=== PATIENT | female | born 1965 | race Hispanic/Latino ===

== ENCOUNTER 2017-05-28 19:12 | Emergency (ER) | payer OTHER, SELFPAY ==
[~2017-05-28 19:12] MED LIST: AMLO5TAB2 PO; AZIT250T PO; ENAL20TA PO; GLIP10TA9 PO; IBUP-2070 PO; METF850T2 PO; OMEP20CA10 PO
== END 2017-05-28 20:18 | disposition home or self-care (01) ==
LOC: EDH 19:12
DX: R51 Headache (principal); E11.9 Type 2 diabetes mellitus without complications; I10 Essential (primary) hypertension
CPT/HCPCS: 99281

== ENCOUNTER 2019-04-05 21:38 | Emergency (ER) | payer OTHER ==
[~2019-04-05 21:38] MED LIST changes: -AMLO5TAB2 PO; +AMLO5TAB9 PO; +METF-445 PO; -METF850T2 PO; +OMEP-50 PO; -OMEP20CA10 PO
[2019-04-05 22:23] LABS: RAPID GROUP A STREP NEGATIVE (NEGATIVE)
[2019-04-05 23:35] LABS: BASOPHILS % (AUTO) 0.6 % (0.0-5.0); EOSINOPHILS % (AUTO) 1.6 % (0.0-8.0); HEMATOCRIT 41.3 % (36-48); LYMPHOCYTES % (AUTO) 45.1 % (21.0-51.0); MEAN CORPUSCULAR HEMOGLOBIN 26.9 pg (27.0-33.0); MEAN CORPUSCULAR HGB CONC 32.7 g/dL (32.0-36.0); MEAN CORPUSCULAR VOLUME 82.3 fL (79-99); MONOCYTES % (AUTO) 7.3 % (3.0-13.0); NEUTROPHILS % (AUTO) 45.4 % (40.0-77.0); NUCLEATED RED BLOOD CELLS 0.1 % (0.0-0.19); PLATELET COUNT (AUTO) 104 K/uL (130-400); RED BLOOD CELL COUNT(AUTO) 5.01 MIL/uL (4.00-5.50); RED CELL DISTRIBUTION WIDTH 14.1 % (11.0-15.5); WHITE BLOOD COUNT (AUTO) 12.4 K/uL (4.8-10.8)
== END 2019-04-06 00:13 | disposition home or self-care (01) ==
LOC: EDH 21:38
DX: J02.9 Acute pharyngitis, unspecified (principal); H65.03 Acute serous otitis media, bilateral; E11.9 Type 2 diabetes mellitus without complications; I10 Essential (primary) hypertension; Z90.49 Acquired absence of other specified parts of digestive tract
CPT/HCPCS: 36415; 85025; 87804; 87880

== ENCOUNTER 2019-07-09 08:17 | Emergency (ER) | payer OTHER ==
[~2019-07-09 08:17] MED LIST changes: -OMEP-50 PO; +OMEP20CA12 PO
[2019-07-09] MEDS ORDERED: LIDOCAINE HCL-MPF 1% 2ML VIAL ONE (08:54)
[2019-07-09] MEDS ORDERED: KETOROLAC TROMETHAMINE 60 MG/2 ML VIAL ONE (08:55)
[2019-07-09 09:26] LABS: RAPID GROUP A STREP NEGATIVE (NEGATIVE)
== END 2019-07-09 10:37 | disposition home or self-care (01) ==
LOC: EDH 08:17
DX: J02.9 Acute pharyngitis, unspecified (principal); E11.9 Type 2 diabetes mellitus without complications; I10 Essential (primary) hypertension; Z90.49 Acquired absence of other specified parts of digestive tract
CPT/HCPCS: 87804 ×2; 87880; 96372 ×2; 99284; J1885; J3490

== ENCOUNTER 2020-03-12 19:53 | Emergency (ER) | payer OTHER ==
[~2020-03-12 19:53] MED LIST changes: +AMLO-257 PO; -AMLO5TAB9 PO; -ENAL20TA PO; +ENAL20TA18 PO
[2020-03-12 20:26] LABS: APPEARANCE,URINE CLOUDY (CLEAR); BILIRUBIN,URINE NEGATIVE (NEGATIVE); COLOR,URINE YELLOW (YELLOW); GLUCOSE, URINE (UA) >=1000 mg/dL (NEGATIVE); KETONES,URINE NEGATIVE (NEGATIVE); LEUKOCYTE ESTERASE ,URINE NEGATIVE (NEGATIVE); NITRATE,URINE NEGATIVE (NEGATIVE); OCCULT BLOOD,URINE MODERATE (NEGATIVE); PROTEIN,URINE 100 mg/dL (NEGATIVE); UROBILINOGEN,URINE 0.2 mg/dL (0.2-1.0)
[2020-03-12] MEDS ORDERED: ONDANSETRON HCL 4 MG/2 ML VIAL ONE (20:32)
[2020-03-12] MEDS ORDERED: MORPHINE SULFATE 4 MG/1ML SYG ONE (20:32)
[2020-03-12 20:43] LABS: BASOPHILS % (AUTO) 0.8 % (0.0-5.0); EOSINOPHILS % (AUTO) 0.8 % (0.0-8.0); HEMATOCRIT 44.4 % (36-48); LYMPHOCYTES % (AUTO) 27.2 % (21.0-51.0); MEAN CORPUSCULAR HEMOGLOBIN 27.1 pg (27.0-33.0); MEAN CORPUSCULAR HGB CONC 33.1 g/dL (32.0-36.0); MEAN CORPUSCULAR VOLUME 81.8 fL (79-99); NEUTROPHILS % (AUTO) 63.8 % (40.0-77.0); PLATELET COUNT (AUTO) 103 K/uL (130-400); RED BLOOD CELL COUNT(AUTO) 5.43 MIL/uL (4.00-5.50); RED CELL DISTRIBUTION WIDTH 14.6 % (11.0-15.5); WHITE BLOOD COUNT (AUTO) 15.5 K/uL (4.8-10.8)
[2020-03-12 20:46] LABS: BACTERIA,URINE Rare /HPF (None Seen); CALCIUM OXALATE CRYSTALS,UR Few /LPF (None Seen); RBC,URINE 26-50 /HPF (0-1); SQUAMOUS EPITHELIAL CELL,UR Rare /HPF (0-2)
[2020-03-12 20:53] LABS: CREATININE 0.8 mg/dL (0.5-1.5); POTASSIUM 3.8 mmol/L (3.5-5.1)
[2020-03-12 20:55] LABS: INR 0.91 (0.85-1.15); PARTIAL THROMBOPLASTIN TIME 24.7 SEC (26.3-35.5); PROTHROMBIN TIME 9.9 SEC (9.6-11.6)
[2020-03-12 20:58] LABS: ALBUMIN 3.7 g/dL (3.5-5.0); BILIRUBIN,TOTAL 0.3 mg/dL (0.2-1.0); TOTAL PROTEIN, SERUM 8.4 g/dL (6.0-8.3)
== END 2020-03-12 22:39 | disposition home or self-care (01) ==
LOC: EDH 19:53
DX: N39.0 Urinary tract infection, site not specified (principal); E11.65 Type 2 diabetes mellitus with hyperglycemia; I10 Essential (primary) hypertension; Z90.49 Acquired absence of other specified parts of digestive tract; Z98.890 Other specified postprocedural states
CPT/HCPCS: 36415; 74176; 80053; 81001; 83690; 84484; 85025; 85610; 85730; 93005; 96361; 96374; 96375; 99285; J2270; J2405

== ENCOUNTER 2021-01-19 22:20 | Emergency (ER) | payer OTHER ==
[~2021-01-19] VITALS: Ht 154.9 cm; Wt 88.5 kg
[2021-01-19] MEDS ORDERED: ACET-2247 PO (22:45)
[2021-01-19] MEDS ORDERED: CEPH500B PO (22:45)
[2021-01-19] MEDS ORDERED: CEPHALEXIN 500 MG CAPSULE PO ONE (23:00)
[2021-01-19] MEDS ORDERED: KETOROLAC 60 MG VIAL (30MG/ML) IM ONE (23:00)
[2021-01-19] MEDS ORDERED: HYDROCODONE/ACETAMINOPHEN 10/325 MG TAB PO ONE (23:00)
[2021-01-19 23:27] VITALS: BP 119/50
== END 2021-01-19 23:29 | disposition home or self-care (01) ==
LOC: EDH 22:20
DX: L03.113 Cellulitis of right upper limb (principal); M77.11 Lateral epicondylitis, right elbow; I10 Essential (primary) hypertension; E11.65 Type 2 diabetes mellitus with hyperglycemia; Z79.1 Long term (current) use of non-steroidal anti-inflammatories (NSAID); Z79.84 Long term (current) use of oral hypoglycemic drugs; Z79.899 Other long term (current) drug therapy
CPT/HCPCS: 82948; 96372; 99283; J1885

== ENCOUNTER 2021-11-16 18:05 | Inpatient (IN) | payer OTHER ==
[~2021-11-16] VITALS: Ht 154.9 cm; Wt 92.3 kg
[~2021-11-16 18:05] MED LIST changes: +ACET-2247 PO; +CEPH500B PO; +PHARMACY COMMUNICATION MISC SCH
[2021-11-16 18:40] LABS: BASOPHILS % (AUTO) 0.5 % (0.0-5.0); EOSINOPHILS % (AUTO) 1.2 % (0.0-8.0); HEMATOCRIT 43.2 % (36-48); LYMPHOCYTES % (AUTO) 28.1 % (21.0-51.0); MEAN CORPUSCULAR HEMOGLOBIN 27.4 pg (27.0-33.0); MEAN CORPUSCULAR HGB CONC 32.2 g/dL (32.0-36.0); MEAN CORPUSCULAR VOLUME 85.2 fL (79-99); MONOCYTES % (AUTO) 8.8 % (3.0-13.0); NEUTROPHILS % (AUTO) 61.1 % (40.0-77.0); PLATELET COUNT (AUTO) 97 K/uL (130-400); RED BLOOD CELL COUNT(AUTO) 5.07 MIL/uL (4.00-5.50); WHITE BLOOD COUNT (AUTO) 13.4 K/uL (4.8-10.8)
[2021-11-16 18:49] LABS: CREATININE 0.7 mg/dL (0.5-1.5); POTASSIUM 4.5 mmol/L (3.5-5.1)
[2021-11-16 18:53] LABS: ALBUMIN 3.6 g/dL (3.5-5.0); BILIRUBIN,TOTAL 0.4 mg/dL (0.2-1.0); TOTAL PROTEIN, SERUM 8.2 g/dL (6.0-8.3)
[2021-11-16] MEDS ORDERED: 0.9%NACL 1000ML 1,000 ML IV SCH (19:30)
[2021-11-16] MEDS ORDERED: INSULIN HUMULIN R 100 UNIT/ML 3ML IV ONE (19:30)
[2021-11-16] MEDS ORDERED: KETOROLAC 30MG VIAL (30MG/ML) IVP ONE (19:30)
[2021-11-16] MEDS ORDERED: ONDANSETRON 4MG INJ IVP ONE (19:30)
[2021-11-16 19:43] LABS: APPEARANCE,URINE CLEAR (CLEAR); BILIRUBIN,URINE NEGATIVE (NEGATIVE); COLOR,URINE YELLOW (YELLOW); GLUCOSE, URINE (UA) >=1000 mg/dL (NEGATIVE); KETONES,URINE NEGATIVE (NEGATIVE); LEUKOCYTE ESTERASE ,URINE NEGATIVE (NEGATIVE); NITRATE,URINE NEGATIVE (NEGATIVE); OCCULT BLOOD,URINE NEGATIVE (NEGATIVE); PROTEIN,URINE NEGATIVE (NEGATIVE); UROBILINOGEN,URINE 0.2 mg/dL (0.2-1.0)
[2021-11-16 19:52] LABS: BACTERIA,URINE Rare /HPF (None Seen); RBC,URINE 0-1 /HPF (0-1); SQUAMOUS EPITHELIAL CELL,UR Few /HPF (0-2); WBC,URINE 0-1 /HPF (0-1)
[2021-11-16] MEDS ORDERED: TAMSULOSIN HCL 0.4 MG CAP.ER.24H PO SCH (22:30)
[2021-11-16] MEDS ORDERED: ACETAMINOPHEN 325 MG TAB PO PRN (23:00)
[2021-11-16] MEDS ORDERED: HYDROCODONE/ACETAMINOPHEN 5/325 MG TAB PO PRN (23:00)
[2021-11-16] MEDS ORDERED: KETOROLAC 30MG VIAL (30MG/ML) IVP PRN (23:00)
[2021-11-16] MEDS ORDERED: ZOLPIDEM TARTRATE 5 MG TAB PO PRN (23:00)
[2021-11-16] MEDS ORDERED: ONDANSETRON 4MG INJ IV PRN (23:00)
[2021-11-17 03:10] VITALS: BP 126/80
[2021-11-17 06:05] LABS: BASOPHILS % (AUTO) 0.6 % (0.0-5.0); EOSINOPHILS % (AUTO) 2.3 % (0.0-8.0); HEMATOCRIT 37.9 % (36-48); LYMPHOCYTES % (AUTO) 34.5 % (21.0-51.0); MEAN CORPUSCULAR HEMOGLOBIN 27.6 pg (27.0-33.0); MEAN CORPUSCULAR HGB CONC 32.5 g/dL (32.0-36.0); MONOCYTES % (AUTO) 9.2 % (3.0-13.0); NEUTROPHILS % (AUTO) 53.1 % (40.0-77.0); PLATELET COUNT (AUTO) 72 K/uL (130-400); RED BLOOD CELL COUNT(AUTO) 4.46 MIL/uL (4.00-5.50); RED CELL DISTRIBUTION WIDTH 14.1 % (11.0-15.5); WHITE BLOOD COUNT (AUTO) 11.5 K/uL (4.8-10.8)
[2021-11-17 06:23] LABS: HEMOGLOBIN A1C 8.7 % (4.0-6.0)
[2021-11-17 06:25] LABS: CREATININE 0.5 mg/dL (0.5-1.5); MAGNESIUM 1.6 mg/dL (1.80-2.40); PHOSPHORUS 3.6 mg/dL (2.5-4.9); POTASSIUM 4.1 mmol/L (3.5-5.1)
[2021-11-17] MEDS ORDERED: INSULIN HUMULIN R 100 UNIT/ML 3ML SQ SCH (07:30)
[2021-11-17 08:00] VITALS: BP 114/70
[2021-11-17] MEDS ORDERED: ENOXAPARIN SODIUM 40 MG/0.4 ML SYRINGE SQ SCH (09:00)
[2021-11-17] MEDS ORDERED: FAMOTIDINE 20MG VIAL IV SCH (09:00)
[2021-11-17] MEDS ORDERED: TAMSULOSIN HCL 0.4 MG CAP.ER.24H PO SCH (09:00)
[2021-11-17] MEDS ORDERED: FAMOTIDINE 20MG TAB PO SCH (09:00)
[2021-11-17] MEDS ORDERED: KETO10 PO (09:41)
== END 2021-11-17 11:00 | disposition home or self-care (01) | DRG 694 ==
LOC: EDH 18:05 → EDHIP 22:37 → 3CH 11-17 02:51
PROVIDERS: ADMIT Hospitalist; ATTEND Hospitalist
DX: N20.0 Calculus of kidney (principal); N39.0 Urinary tract infection, site not specified; E11.65 Type 2 diabetes mellitus with hyperglycemia; I10 Essential (primary) hypertension; Z20.822 Contact with and (suspected) exposure to COVID-19; E66.9 Obesity, unspecified; Z87.442 Personal history of urinary calculi; Z90.81 Acquired absence of spleen; Z82.49 Family history of ischemic heart disease and other diseases of the circulatory system; Z83.3 Family history of diabetes mellitus; Z82.3 Family history of stroke; Z82.0 Family history of epilepsy and other diseases of the nervous system; E66.01 Morbid (severe) obesity due to excess calories; Z68.38 Body mass index [BMI] 38.0-38.9, adult
CPT/HCPCS: 36415; 74176; 80048; 80053; 81001; 82948; 83036; 83605; 83690; 83735; 84100; 84145; 84484; 85025; 87635; C9803; G0378; J1815; J1885; J2405; J7030

== ENCOUNTER 2022-01-10 01:52 | Emergency (ER) | payer OTHER ==
[~2022-01-10] VITALS: Ht 154.9 cm; Wt 88.9 kg
[~2022-01-10 01:52] MED LIST changes: -ACET-2247 PO; -AZIT250T PO; -CEPH500B PO; +KETO10 PO; -PHARMACY COMMUNICATION MISC SCH
[2022-01-10 02:12] LABS: BASOPHILS % (AUTO) 0.9 % (0.0-5.0); EOSINOPHILS % (AUTO) 1.6 % (0.0-8.0); HEMATOCRIT 44.8 % (36-48); LYMPHOCYTES % (AUTO) 42.7 % (21.0-51.0); MEAN CORPUSCULAR HEMOGLOBIN 27.4 pg (27.0-33.0); MEAN CORPUSCULAR HGB CONC 32.8 g/dL (32.0-36.0); MEAN CORPUSCULAR VOLUME 83.4 fL (79-99); MONOCYTES % (AUTO) 7.9 % (3.0-13.0); NEUTROPHILS % (AUTO) 46.6 % (40.0-77.0); PLATELET COUNT (AUTO) 110 K/uL (130-400); RED BLOOD CELL COUNT(AUTO) 5.37 MIL/uL (4.00-5.50); RED CELL DISTRIBUTION WIDTH 13.4 % (11.0-15.5); WHITE BLOOD COUNT (AUTO) 12.2 K/uL (4.8-10.8)
[2022-01-10] MEDS ORDERED: KETOROLAC 15MG/ML VIAL (15MG/ML) ONE (02:19)
[2022-01-10 02:23] LABS: CREATININE 0.8 mg/dL (0.5-1.5); POTASSIUM 4.1 mmol/L (3.5-5.1)
[2022-01-10 02:26] LABS: APPEARANCE,URINE CLEAR (CLEAR); BILIRUBIN,URINE NEGATIVE (NEGATIVE); COLOR,URINE YELLOW (YELLOW); GLUCOSE, URINE (UA) >=1000 mg/dL (NEGATIVE); KETONES,URINE NEGATIVE (NEGATIVE); LEUKOCYTE ESTERASE ,URINE NEGATIVE (NEGATIVE); NITRATE,URINE NEGATIVE (NEGATIVE); OCCULT BLOOD,URINE NEGATIVE (NEGATIVE); PROTEIN,URINE NEGATIVE (NEGATIVE); UROBILINOGEN,URINE 0.2 mg/dL (0.2-1.0)
[2022-01-10 02:28] LABS: ALBUMIN 3.7 g/dL (3.5-5.0); TOTAL PROTEIN, SERUM 7.8 g/dL (6.0-8.3)
[2022-01-10] MEDS ORDERED: KETOROLAC 15MG/ML VIAL (15MG/ML) IV ONE (02:30)
[2022-01-10 02:35] LABS: BACTERIA,URINE Rare /HPF (None Seen); RBC,URINE 0-1 /HPF (0-1); WBC,URINE 0-1 /HPF (0-1)
[2022-01-10] MEDS ORDERED: KETO10TA2 PO (04:09)
[2022-01-10 04:23] VITALS: BP 127/83
== END 2022-01-10 04:28 | disposition home or self-care (01) ==
LOC: EDH 01:52
DX: N20.0 Calculus of kidney (principal); E11.9 Type 2 diabetes mellitus without complications; I10 Essential (primary) hypertension; E66.01 Morbid (severe) obesity due to excess calories; Z79.1 Long term (current) use of non-steroidal anti-inflammatories (NSAID); Z79.84 Long term (current) use of oral hypoglycemic drugs; Z90.49 Acquired absence of other specified parts of digestive tract; Z87.442 Personal history of urinary calculi; Z79.899 Other long term (current) drug therapy; Z68.37 Body mass index [BMI] 37.0-37.9, adult
CPT/HCPCS: 99285; 74176; 96374; 71045; 84484; 80053; 85025; 81001; 36415; 93005; J1885

== ENCOUNTER 2022-05-30 23:09 | Emergency (ER) | payer OTHER ==
[~2022-05-30] VITALS: Ht 152.4 cm; Wt 88.9 kg
[~2022-05-30 23:09] MED LIST changes: +KETO10TA2 PO
[2022-05-30] MEDS ORDERED: IPRATROPIUM/ALBUTEROL SULFATE 3 ML SOLUTION IH ONE (23:30)
[2022-05-30 23:49] LABS: APPEARANCE,URINE CLEAR (CLEAR); BILIRUBIN,URINE NEGATIVE (NEGATIVE); COLOR,URINE COLORLESS (YELLOW); GLUCOSE, URINE (UA) >=1000 mg/dL (NEGATIVE); KETONES,URINE NEGATIVE (NEGATIVE); LEUKOCYTE ESTERASE ,URINE NEGATIVE Leu/uL (NEGATIVE); NITRATE,URINE NEGATIVE (NEGATIVE); OCCULT BLOOD,URINE NEGATIVE (NEGATIVE); PH,URINE 5.5 (5.0-8.0); PROTEIN,URINE NEGATIVE (NEGATIVE); UROBILINOGEN,URINE 0.2 mg/dL (0.2-1.0)
[2022-05-30] MEDS ORDERED: SOLU-MEDROL 125MG VIAL IVP STA (23:49)
[2022-05-30 23:50] LABS: BASOPHILS % (AUTO) 0.8 % (0.0-5.0); EOSINOPHILS % (AUTO) 3.4 % (0.0-8.0); HEMATOCRIT 47.6 % (36-48); LYMPHOCYTES % (AUTO) 42.4 % (21.0-51.0); MEAN CORPUSCULAR HEMOGLOBIN 27.1 pg (27.0-33.0); MEAN CORPUSCULAR HGB CONC 32.6 g/dL (32.0-36.0); MEAN CORPUSCULAR VOLUME 83.2 fL (79-99); MONOCYTES % (AUTO) 12.5 % (3.0-13.0); NEUTROPHILS % (AUTO) 40.7 % (40.0-77.0); RED BLOOD CELL COUNT(AUTO) 5.72 MIL/uL (4.00-5.50); RED CELL DISTRIBUTION WIDTH 13.8 % (11.0-15.5); WHITE BLOOD COUNT (AUTO) 8.3 K/uL (4.8-10.8)
[2022-05-30 23:51] LABS: RBC,URINE 0-1 /HPF (0-1); SQUAMOUS EPITHELIAL CELL,UR RARE /HPF (0-2); WBC,URINE 0-1 /HPF (0-1)
[2022-05-31 00:09] LABS: ALBUMIN 3.6 g/dL (3.5-5.0); CREATININE 0.9 mg/dL (0.5-1.5); POTASSIUM 4.6 mmol/L (3.5-5.1); TOTAL PROTEIN, SERUM 8.1 g/dL (6.0-8.3)
[2022-05-31 00:15] LABS: PLATELET COUNT (AUTO) 60 K/uL (130-400)
[2022-05-31] MEDS ORDERED: IPRATROPIUM/ALBUTEROL SULFATE 3 ML SOLUTION IH ONE ×2 (03:30→04:00)
[2022-05-31 04:48] VITALS: BP 124/72
[2022-05-31] MEDS ORDERED: ALBU90AE2 IH (05:58)
[2022-05-31] MEDS ORDERED: INSULIN HUMULIN R 100 UNIT/ML 3ML IV ONE (06:00)
== END 2022-05-31 06:08 | disposition home or self-care (01) ==
LOC: EDH 23:09
DX: J45.901 Unspecified asthma with (acute) exacerbation (principal); E11.9 Type 2 diabetes mellitus without complications; D69.3 Immune thrombocytopenic purpura; I10 Essential (primary) hypertension; Z90.49 Acquired absence of other specified parts of digestive tract; Z20.822 Contact with and (suspected) exposure to COVID-19
CPT/HCPCS: 99285; 71045; 87635; 80053; 85025; 87804 ×2; 82948; 81001; 36415; 93005; 94640; 96374; 96375; C9803; J2930; J1815

== ENCOUNTER 2022-09-05 16:20 | Emergency (ER) | payer BC, OTHER ==
[~2022-09-05] VITALS: Ht 157.5 cm; Wt 90.7 kg
[~2022-09-05 16:20] MED LIST changes: +ALBU90AE2 IH; +ENAL-91 PO; -ENAL20TA18 PO
[2022-09-05 17:08] VITALS: BP 135/95
[2022-09-05] MEDS: KETOROLAC 30MG VIAL (30MG/ML) IM ONE ×2 (19:10→19:14)
[2022-09-05] MEDS ORDERED: ACETAMINOPHEN 325 MG TAB PO ONE (19:30)
== END 2022-09-05 19:46 | disposition home or self-care (01) ==
LOC: EDH 16:20
DX: M25.512 Pain in left shoulder (principal); J45.909 Unspecified asthma, uncomplicated; E11.9 Type 2 diabetes mellitus without complications; E66.01 Morbid (severe) obesity due to excess calories; I10 Essential (primary) hypertension; Z79.1 Long term (current) use of non-steroidal anti-inflammatories (NSAID); Z79.84 Long term (current) use of oral hypoglycemic drugs; Z79.899 Other long term (current) drug therapy; Z90.49 Acquired absence of other specified parts of digestive tract; Z68.36 Body mass index [BMI] 36.0-36.9, adult; W19.XXXA Unspecified fall, initial encounter; Y93.89 Activity, other specified; Y92.89 Other specified places as the place of occurrence of the external cause; Y99.8 Other external cause status
CPT/HCPCS: 99283; 73030; J1885

== ENCOUNTER 2022-10-12 00:59 | Observation (INO) | payer BC ==
[~2022-10-12] VITALS: Ht 154.9 cm; Wt 92.7 kg
[2022-10-12 01:27] LABS: EOSINOPHILS % (AUTO) 2.1 % (0.0-8.0); HEMATOCRIT 42.5 % (36-48); LYMPHOCYTES % (AUTO) 31.9 % (21.0-51.0); MEAN CORPUSCULAR HGB CONC 32.2 g/dL (32.0-36.0); MEAN CORPUSCULAR VOLUME 83.8 fL (79-99); MONOCYTES % (AUTO) 9.5 % (3.0-13.0); NEUTROPHILS % (AUTO) 55.3 % (40.0-77.0); PLATELET COUNT (AUTO) 100 K/uL (130-400); RED BLOOD CELL COUNT(AUTO) 5.07 MIL/uL (4.00-5.50); RED CELL DISTRIBUTION WIDTH 13.7 % (11.0-15.5); WHITE BLOOD COUNT (AUTO) 13.5 K/uL (4.8-10.8)
[2022-10-12 01:48] LABS: CREATININE 0.8 mg/dL (0.5-1.5); POTASSIUM 4.4 mmol/L (3.5-5.1)
[2022-10-12 01:53] LABS: ALBUMIN 3.6 g/dL (3.5-5.0); TOTAL PROTEIN, SERUM 7.5 g/dL (6.0-8.3)
[2022-10-12] MEDS ORDERED: ACETAMINOPHEN 325 MG TAB PO PRN ×2 (03:30)
[2022-10-12] MEDS ORDERED: ALBUTEROL 0.083% 2.5 MG/3 ML INH IH PRN (03:30)
[2022-10-12] MEDS ORDERED: ASPIRIN 325MG TAB PO ONE (03:30)
[2022-10-12] MEDS ORDERED: LACTULOSE 20 GM/30 ML UDCUP PO PRN (03:30)
[2022-10-12] MEDS ORDERED: NITROGLYCERIN 0.4 MG SL TAB SL PRN (03:30)
[2022-10-12] MEDS ORDERED: ONDANSETRON 4MG INJ IV PRN (03:30)
[2022-10-12] MEDS ORDERED: MORPHINE 4 MG SYG IV PRN (03:30)
[2022-10-12] MEDS ORDERED: MAG/ALUM/SIMETH 30 ML UDCUP PO PRN (03:30)
[2022-10-12 03:50] LABS: APPEARANCE,URINE CLEAR (CLEAR); BILIRUBIN,URINE NEGATIVE (NEGATIVE); COLOR,URINE LIGHT-YELLOW (YELLOW); GLUCOSE, URINE (UA) 300 mg/dL (NEGATIVE); KETONES,URINE NEGATIVE (NEGATIVE); LEUKOCYTE ESTERASE ,URINE NEGATIVE Leu/uL (NEGATIVE); NITRATE,URINE NEGATIVE (NEGATIVE); OCCULT BLOOD,URINE NEGATIVE (NEGATIVE); PROTEIN,URINE NEGATIVE (NEGATIVE); UROBILINOGEN,URINE 0.2 mg/dL (0.2-1.0)
[2022-10-12 03:57] LABS: AMPHET/METH SCREEN,URINE NEGATIVE (NEGATIVE); BARBITURATE SCREEN, URINE NEGATIVE (NEGATIVE); BENZODIAZEPINES SCREEN,URINE NEGATIVE (NEGATIVE); CANNABINOID SCREEN,URINE NEGATIVE (NEGATIVE); COCAINE SCREEN,URINE NEGATIVE (NEGATIVE); OPIATE SCREEN,URINE NEGATIVE (NEGATIVE); PHENCYCLIDINE SCREEN,URINE NEGATIVE (NEGATIVE)
[2022-10-12 04:00] LABS: MUCUS,URINE RARE LPF (None Seen); SQUAMOUS EPITHELIAL CELL,UR RARE /HPF (0-2)
[2022-10-12 05:33] LABS: CHOLESTEROL 173 mg/dL (<200); HDL CHOLESTEROL 51 mg/dL (35-85); LDL DIRECT 104 mg/dL (0-99); TRIGLYCERIDES 120 mg/dL (30-200)
[2022-10-12 05:34] LABS: HEMOGLOBIN A1C 10.3 % (4.0-6.0)
[2022-10-12] MEDS: INSULIN HUMULIN R 100 UNIT/ML 3ML SQ SCH ×4 (07:30→20:29)
[2022-10-12] MEDS ORDERED: ENOXAPARIN SODIUM 40 MG/0.4 ML SYRINGE SQ SCH (09:00)
[2022-10-12] MEDS ORDERED: FAMOTIDINE 20MG VIAL IV SCH (09:00)
[2022-10-12] MEDS: ACETAMINOPHEN WITH CODEINE 1 TAB TAB PO PRN (09:25)
[2022-10-12 14:15] VITALS: BP 112/79
[2022-10-12] MEDS ORDERED: SITA100T12 PO (14:56)
[2022-10-12] MEDS ORDERED: SEMA0.258 SQ (14:56)
[2022-10-12] MEDS ORDERED: INSU100V12 SQ (14:56)
[2022-10-12] MEDS ORDERED: TRAM50TA4 PO (14:56)
[2022-10-12 16:00] VITALS: BP 104/62
[2022-10-12] MEDS ORDERED: IBUPROFEN 600 MG TABLET PO PRN (16:30)
[2022-10-12] MEDS ORDERED: TRAMADOL HCL 50 MG TABLET PO PRN (16:30)
[2022-10-12] MEDS ORDERED: ALBUTEROL SULFATE 90 MCG IH PRN (16:30)
[2022-10-12 19:44] VITALS: BP 107/77
[2022-10-12] MEDS: MORPHINE 2 MG SYG IV PRN (20:50)
[2022-10-12] MEDS ORDERED: ATORVASTATIN 20 MG TABLET PO SCH (21:00)
[2022-10-12] MEDS ORDERED: HYDROXYZINE 25 MG TABLET PO SCH (21:00)
[2022-10-12 23:49] VITALS: BP 116/79
[2022-10-13 04:17] VITALS: BP 123/76
[2022-10-13] MEDS: MORPHINE 2 MG SYG IV PRN ×2 (04:20→08:25)
[2022-10-13 04:55] LABS: HEMATOCRIT 43.8 % (36-48); MEAN CORPUSCULAR HEMOGLOBIN 27.5 pg (27.0-33.0); MEAN CORPUSCULAR VOLUME 86.1 fL (79-99); RED BLOOD CELL COUNT(AUTO) 5.09 MIL/uL (4.00-5.50); RED CELL DISTRIBUTION WIDTH 13.6 % (11.0-15.5); WHITE BLOOD COUNT (AUTO) 12.6 K/uL (4.8-10.8)
[2022-10-13 05:21] LABS: ALBUMIN 3.3 g/dL (3.5-5.0); CREATININE 0.6 mg/dL (0.5-1.5); TOTAL PROTEIN, SERUM 7.6 g/dL (6.0-8.3)
[2022-10-13] MEDS ORDERED: GLIPIZIDE 5 MG TABLET ONE (05:55)
[2022-10-13] MEDS: INSULIN HUMULIN R 100 UNIT/ML 3ML SQ SCH ×2 (06:14→11:30)
[2022-10-13 06:46] VITALS: BP 102/71
[2022-10-13] MEDS ORDERED: GLIPIZIDE 5 MG TABLET PO SCH (07:30)
[2022-10-13] MEDS ORDERED: PANTOPRAZOLE 40 MG TAB DR PO SCH (09:00)
[2022-10-13] MEDS ORDERED: NON-FORMULARY MEDICATION 1 EACH (Glipizide 10 MG) PO SCH (09:00)
[2022-10-13] MEDS ORDERED: ASPIRIN 81 MG EC TAB PO SCH (09:00)
[2022-10-13] MEDS ORDERED: NON-FORMULARY MEDICATION 1 EACH (Enalapril Maleate 20 MG) PO SCH (09:00)
[2022-10-13] MEDS ORDERED: AMLODIPINE 5 MG TAB PO SCH (09:00)
[2022-10-13] MEDS ORDERED: ENALAPRIL MALEATE 10 MG TABLET PO SCH (09:00)
[2022-10-13] MEDS ORDERED: ATOR20TA65 PO (11:46)
[2022-10-13] MEDS ORDERED: ENAL-89 PO (11:46)
[2022-10-13 12:00] VITALS: BP 92/61
[2022-10-13] MEDS: ACETAMINOPHEN WITH CODEINE 1 TAB TAB PO PRN (12:41)
== END 2022-10-13 13:30 | disposition home or self-care (01) ==
LOC: EDH 00:59 → EDHIP 03:01 → 4DH 12:54
PROVIDERS: ADMIT Hospitalist; ATTEND Hospitalist
DX: R07.89 Other chest pain (principal); E78.5 Hyperlipidemia, unspecified; E11.65 Type 2 diabetes mellitus with hyperglycemia; M25.519 Pain in unspecified shoulder; I25.10 Atherosclerotic heart disease of native coronary artery without angina pectoris; J45.909 Unspecified asthma, uncomplicated; I10 Essential (primary) hypertension; E66.01 Morbid (severe) obesity due to excess calories; I25.2 Old myocardial infarction; Z87.442 Personal history of urinary calculi; Z68.39 Body mass index [BMI] 39.0-39.9, adult; Z90.81 Acquired absence of spleen; Z79.899 Other long term (current) drug therapy
CPT/HCPCS: 96374; 96376 ×2; 96372; 96375; 99285; 83036; 84484 ×3; 80061; 80053 ×2; 80305; 85025; 82948 ×6; 81001; 36415 ×2; 71045; 93306; 93356; 94760; 93005 ×2; 85027; G0378 ×33; J3490; J2270; J1815; A4600; A4606

== ENCOUNTER 2023-02-26 19:37 | Emergency (ER) | payer BC ==
[~2023-02-26] VITALS: Ht 152.4 cm; Wt 87.1 kg
[~2023-02-26 19:37] MED LIST changes: +ATOR20TA65 PO; +ENAL-89 PO; +INSU100V12 SQ; -KETO10 PO; -KETO10TA2 PO; -METF-445 PO; +SEMA0.258 SQ; +SITA100T12 PO; +TRAM50TA4 PO
[2023-02-26 23:53] LABS: BASOPHILS % (AUTO) 0.7 % (0.0-5.0); EOSINOPHILS # (AUTO) 0.11 K/uL (0.00-0.70); EOSINOPHILS % (AUTO) 0.8 % (0.0-8.0); HEMATOCRIT 45.3 % (36-48); IMMATURE GRANULOCYTE ABSOLUTE 0.05 K/uL (0-1); LYMPHOCYTES # (AUTO) 3.4 K/uL (1.0-4.8); LYMPHOCYTES % (AUTO) 25.3 % (21.0-51.0); MEAN CORPUSCULAR HEMOGLOBIN 27.4 pg (27.0-33.0); MEAN CORPUSCULAR VOLUME 85.6 fL (79-99); MONOCYTES # (AUTO) 1.1 K/uL (0.1-1.0); MONOCYTES % (AUTO) 7.8 % (3.0-13.0); NEUTROPHILS # (AUTO) 8.8 K/uL (1.8-7.7); PLATELET COUNT (AUTO) 97 K/uL (130-400); RED BLOOD CELL COUNT(AUTO) 5.29 MIL/uL (4.00-5.50); RED CELL DISTRIBUTION WIDTH 13.7 % (11.0-15.5); WHITE BLOOD COUNT (AUTO) 13.5 K/uL (4.8-10.8)
[2023-02-27 00:15] LABS: CREATININE 0.7 mg/dL (0.5-1.5)
[2023-02-27 00:26] LABS: ALBUMIN 3.6 g/dL (3.5-5.0); BILIRUBIN,TOTAL 0.2 mg/dL (0.2-1.0); TOTAL PROTEIN, SERUM 8.7 g/dL (6.0-8.3)
[2023-02-27 00:50] VITALS: BP 148/72; PULSE 85; RESP 18; O2SAT 99
== END 2023-02-27 01:10 | disposition home or self-care (01) ==
LOC: EDH 19:37
DX: R07.9 Chest pain, unspecified (principal); D69.3 Immune thrombocytopenic purpura; I10 Essential (primary) hypertension; E11.9 Type 2 diabetes mellitus without complications; Z90.49 Acquired absence of other specified parts of digestive tract; Z79.4 Long term (current) use of insulin; Z79.899 Other long term (current) drug therapy
CPT/HCPCS: 36415; 71045; 80053; 82550; 83874; 83880; 84484; 85025; 85730; 93005

== ENCOUNTER 2023-06-29 12:22 | Emergency (ER) | payer BC ==
[~2023-06-29] VITALS: Ht 152.4 cm; Wt 91.6 kg
[2023-06-29 13:06] VITALS: BP 110/76; PULSE 107; RESP 20
[2023-06-29] MEDS ORDERED: ASPIRIN 325MG TAB PO ONE (13:30)
[2023-06-29 14:25] LABS: BASOPHILS # (AUTO) 0.08 K/uL (0.00-0.20); BASOPHILS % (AUTO) 0.5 % (0.0-5.0); EOSINOPHILS # (AUTO) 0.02 K/uL (0.00-0.70); EOSINOPHILS % (AUTO) 0.1 % (0.0-8.0); HEMATOCRIT 42.9 % (36-48); IMMATURE GRANULOCYTE ABSOLUTE 0.05 K/uL (0-1); LYMPHOCYTES # (AUTO) 2.8 K/uL (1.0-4.8); LYMPHOCYTES % (AUTO) 18.6 % (21.0-51.0); MEAN CORPUSCULAR HEMOGLOBIN 26.4 pg (27.0-33.0); MEAN CORPUSCULAR HGB CONC 32.4 g/dL (32.0-36.0); MEAN CORPUSCULAR VOLUME 81.4 fL (79-99); MONOCYTES # (AUTO) 1.7 K/uL (0.1-1.0); MONOCYTES % (AUTO) 11.3 % (3.0-13.0); NEUTROPHILS # (AUTO) 10.4 K/uL (1.8-7.7); NEUTROPHILS % (AUTO) 69.2 % (40.0-77.0); PLATELET COUNT (AUTO) 66 K/uL (130-400); RED BLOOD CELL COUNT(AUTO) 5.27 MIL/uL (4.00-5.50); RED CELL DISTRIBUTION WIDTH 14.6 % (11.0-15.5)
[2023-06-29 14:39] LABS: CREATININE 0.7 mg/dL (0.5-1.5); POTASSIUM 3.6 mmol/L (3.5-5.1)
[2023-06-29 14:43] LABS: BILIRUBIN,URINE NEGATIVE (NEGATIVE); COLOR,URINE YELLOW (YELLOW); GLUCOSE, URINE (UA) >=1000 mg/dL (NEGATIVE); KETONES,URINE NEGATIVE (NEGATIVE); LEUKOCYTE ESTERASE ,URINE 500 Leu/uL (NEGATIVE); NITRATE,URINE 2+ (NEGATIVE); OCCULT BLOOD,URINE LARGE (NEGATIVE); PROTEIN,URINE 50 mg/dL (NEGATIVE); UROBILINOGEN,URINE 0.2 mg/dL (0.2-1.0)
[2023-06-29 14:44] LABS: ALBUMIN 3.5 g/dL (3.5-5.0); BILIRUBIN,TOTAL 0.7 mg/dL (0.2-1.0); TOTAL PROTEIN, SERUM 8.2 g/dL (6.0-8.3)
[2023-06-29 14:44] LABS: ADD UA MICROSCOPIC YES; APPEARANCE,URINE CLOUDY (CLEAR)
[2023-06-29 14:46] LABS: BACTERIA,URINE MOD /HPF (None Seen); MUCUS,URINE RARE LPF (None Seen); RBC,URINE 26-50 /HPF (0-1); SQUAMOUS EPITHELIAL CELL,UR MOD /HPF (0-2); WBC CLUMP FEW /HPF (0-1); WBC,URINE TNTC /HPF (0-1)
[2023-06-29 15:46] LABS: PLATELET MORPHOLOGY COMMENT DECREASED
[2023-06-29] MEDS ORDERED: AMOX1TAB16 PO (16:08)
[2023-06-29] MEDS ORDERED: PHEN-776 PO (16:08)
[2023-06-29] MEDS ORDERED: IBUPROFEN 800 MG TAB ONE (16:19)
[2023-06-29] MEDS ORDERED: AMOX/CLAV 875/125MG TAB PO ONE (16:30)
[2023-06-29] MEDS ORDERED: IBUPROFEN 800 MG TAB PO ONE (16:30)
== END 2023-06-29 16:35 | disposition home or self-care (01) ==
LOC: EDH 12:22
DX: R07.89 Other chest pain (principal); N30.00 Acute cystitis without hematuria; E11.65 Type 2 diabetes mellitus with hyperglycemia; I10 Essential (primary) hypertension; I21.9 Acute myocardial infarction, unspecified; E66.01 Morbid (severe) obesity due to excess calories; Z79.84 Long term (current) use of oral hypoglycemic drugs; Z79.899 Other long term (current) drug therapy; Z90.49 Acquired absence of other specified parts of digestive tract; Z68.39 Body mass index [BMI] 39.0-39.9, adult
CPT/HCPCS: 36415; 80053; 81001; 83605; 84484; 85025; 87040; 87077; 87088; 87186; 93005

== ENCOUNTER 2023-12-14 02:42 | Emergency (ER) | payer BC, MEDICAID ==
[~2023-12-14] VITALS: Ht 152.4 cm; Wt 90.7 kg
[~2023-12-14 02:42] MED LIST changes: -ALBU90AE2 IH; +ALBU90AE3 IH; +AMOX1TAB16 PO; +PHEN-776 PO
[2023-12-14 03:13] LABS: APPEARANCE,URINE CLEAR (CLEAR); BILIRUBIN,URINE NEGATIVE (NEGATIVE); COLOR,URINE COLORLESS (YELLOW); GLUCOSE, URINE (UA) >=1000 mg/dL (NEGATIVE); KETONES,URINE NEGATIVE (NEGATIVE); LEUKOCYTE ESTERASE ,URINE NEGATIVE Leu/uL (NEGATIVE); NITRATE,URINE NEGATIVE (NEGATIVE); OCCULT BLOOD,URINE NEGATIVE (NEGATIVE); PH,URINE 6.5 (5.0-8.0); PROTEIN,URINE NEGATIVE (NEGATIVE); UROBILINOGEN,URINE 0.2 mg/dL (0.2-1.0)
[2023-12-14 03:20] LABS: ADD UA MICROSCOPIC YES
[2023-12-14 03:22] LABS: BACTERIA,URINE RARE /HPF (None Seen); SQUAMOUS EPITHELIAL CELL,UR RARE /HPF (0-2); WBC,URINE 0-1 /HPF (0-1)
[2023-12-14] MEDS: PHENAZOPYRIDINE HCL 200 MG TABLET PO ONE (03:29)
[2023-12-14] MEDS: KETOROLAC 30MG VIAL (30MG/ML) IVP ONE (03:29)
[2023-12-14] MEDS: CEFTRIAXONE 2GM VIAL IVPB ONE (03:29)
[2023-12-14 03:36] LABS: BASOPHILS # (AUTO) 0.07 K/uL (0.00-0.20); BASOPHILS % (AUTO) 0.6 % (0.0-5.0); EOSINOPHILS # (AUTO) 0.11 K/uL (0.00-0.70); EOSINOPHILS % (AUTO) 0.9 % (0.0-8.0); HEMATOCRIT 40.9 % (36-48); IMMATURE GRANULOCYTE ABSOLUTE 0.05 K/uL (0-1); LYMPHOCYTES # (AUTO) 2.2 K/uL (1.0-4.8); LYMPHOCYTES % (AUTO) 18.3 % (21.0-51.0); MEAN CORPUSCULAR HEMOGLOBIN 26.6 pg (27.0-33.0); MEAN CORPUSCULAR HGB CONC 32.3 g/dL (32.0-36.0); MEAN CORPUSCULAR VOLUME 82.3 fL (79-99); MONOCYTES # (AUTO) 0.7 K/uL (0.1-1.0); MONOCYTES % (AUTO) 5.4 % (3.0-13.0); NEUTROPHILS % (AUTO) 74.4 % (40.0-77.0); PLATELET COUNT (AUTO) 53 K/uL (130-400); RED BLOOD CELL COUNT(AUTO) 4.97 MIL/uL (4.00-5.50); RED CELL DISTRIBUTION WIDTH 14.7 % (11.0-15.5); WHITE BLOOD COUNT (AUTO) 12.1 K/uL (4.8-10.8)
[2023-12-14 03:40] LABS: CREATININE 0.8 mg/dL (0.5-1.0); POTASSIUM 4.6 mmol/L (3.5-5.1)
[2023-12-14 03:45] LABS: ALBUMIN 3.7 g/dL (3.5-5.0); BILIRUBIN,TOTAL 0.4 mg/dL (0.2-1.0); MAGNESIUM 1.8 mg/dL (1.80-2.40); TOTAL PROTEIN, SERUM 8.1 g/dL (6.0-8.3)
[2023-12-14] MEDS: LORAZEPAM 2 MG/ML 1 ML VIAL IVP ONE (05:31)
[2023-12-14 05:40] VITALS: BP 141/87; PULSE 82; RESP 14; O2SAT 99
[2023-12-14] MEDS ORDERED: HYDR-3421 PO (05:50)
[2023-12-14] MEDS: HYDROXYZINE 25 MG TABLET PO ONE ×2 (06:04)
== END 2023-12-14 06:19 | disposition home or self-care (01) ==
LOC: EDH 02:42
DX: F41.9 Anxiety disorder, unspecified (principal); F43.22 Adjustment disorder with anxiety; R10.30 Lower abdominal pain, unspecified; G47.00 Insomnia, unspecified; R30.0 Dysuria; R35.0 Frequency of micturition; E11.9 Type 2 diabetes mellitus without complications; E78.00 Pure hypercholesterolemia, unspecified; M79.7 Fibromyalgia; I10 Essential (primary) hypertension; Z79.84 Long term (current) use of oral hypoglycemic drugs; Z79.899 Other long term (current) drug therapy; Z90.49 Acquired absence of other specified parts of digestive tract; Z98.890 Other specified postprocedural states
CPT/HCPCS: 99284; 96365; 96375; 82150; 83735; 80053; 85025; 81001; 36415; J0696; J2060; J1885

== ENCOUNTER 2023-12-20 16:59 | Emergency (ER) | payer MEDICAID ==
[~2023-12-20] VITALS: Ht 152.4 cm; Wt 91.6 kg
[~2023-12-20 16:59] MED LIST changes: +HYDR-3421 PO
[2023-12-20 17:57] LABS: BASOPHILS # (AUTO) 0.09 K/uL (0.00-0.20); BASOPHILS % (AUTO) 0.6 % (0.0-5.0); EOSINOPHILS # (AUTO) 0.09 K/uL (0.00-0.70); EOSINOPHILS % (AUTO) 0.6 % (0.0-8.0); IMMATURE GRANULOCYTE ABSOLUTE 0.06 K/uL (0-1); LYMPHOCYTES # (AUTO) 2.6 K/uL (1.0-4.8); LYMPHOCYTES % (AUTO) 16.5 % (21.0-51.0); MEAN CORPUSCULAR HEMOGLOBIN 27.1 pg (27.0-33.0); MEAN CORPUSCULAR HGB CONC 31.9 g/dL (32.0-36.0); MEAN CORPUSCULAR VOLUME 85.1 fL (79-99); MONOCYTES # (AUTO) 1.1 K/uL (0.1-1.0); MONOCYTES % (AUTO) 7.4 % (3.0-13.0); NEUTROPHILS # (AUTO) 11.6 K/uL (1.8-7.7); NEUTROPHILS % (AUTO) 74.5 % (40.0-77.0); PLATELET COUNT (AUTO) 276 K/uL (130-400); RED BLOOD CELL COUNT(AUTO) 5.05 MIL/uL (4.00-5.50); WHITE BLOOD COUNT (AUTO) 15.5 K/uL (4.8-10.8)
[2023-12-20] MEDS: METOCLOPRAMIDE 10 MG/2 ML VIAL IVP ONE (17:58)
[2023-12-20] MEDS: 0.9%NACL 1000ML 1,000 ML IV ONE (17:58)
[2023-12-20] MEDS: SOLU-MEDROL 125MG VIAL IVP ONE (17:58)
[2023-12-20] MEDS: KETOROLAC 30MG VIAL (30MG/ML) IVP ONE (17:58)
[2023-12-20] MEDS: ONDANSETRON 4MG INJ IVP ONE (17:59)
[2023-12-20 18:06] LABS: CREATININE 0.8 mg/dL (0.5-1.0); POTASSIUM 4.5 mmol/L (3.5-5.1)
[2023-12-20 18:11] LABS: ALBUMIN 3.6 g/dL (3.5-5.0); BILIRUBIN,TOTAL 0.4 mg/dL (0.2-1.0); TOTAL PROTEIN, SERUM 8.1 g/dL (6.0-8.3)
[2023-12-20] MEDS: DiphenhydrAMINE HCL 50 MG/ML VIAL IV ONE (18:37)
[2023-12-20] MEDS: CYCLOBENZAPRINE HCL 10 MG TABLET PO ONE (18:37)
[2023-12-20 19:02] VITALS: BP 128/74; PULSE 92; RESP 16; O2SAT 97
[2023-12-20] MEDS ORDERED: BUTA-271 PO (19:16)
== END 2023-12-20 19:31 | disposition home or self-care (01) ==
LOC: EDH 16:59
DX: G44.209 Tension-type headache, unspecified, not intractable (principal); E11.65 Type 2 diabetes mellitus with hyperglycemia; I10 Essential (primary) hypertension; D72.829 Elevated white blood cell count, unspecified; N39.0 Urinary tract infection, site not specified; M79.7 Fibromyalgia; Z79.84 Long term (current) use of oral hypoglycemic drugs; Z79.899 Other long term (current) drug therapy; Z90.49 Acquired absence of other specified parts of digestive tract
CPT/HCPCS: 99284; 96374; 96375; 80053; 85025; 36415; J1200; J7030; J2919; J2405; J1885; J2765